=== PATIENT | male | born 1980 | race Caucasian/White ===

== ENCOUNTER 2017-08-12 19:56 | Emergency (ER) | payer MEDICARE, MEDICAID ==
[~2017-08-12] VITALS: Ht 170.2 cm; Wt 63.0 kg
[~2017-08-12 19:56] MED LIST: ALBU6.7H INH; DOXY100T PO; MEDR4PAK3 PO
[2017-08-12 20:00] VITALS: BP 106/63; PULSE 70; RESP 16; TEMP 98.3; O2SAT 95
[2017-08-12] MEDS ORDERED: ALBUAER3 INH (20:17)
--- NOTE | 2017-08-12 20:25 | PD ---
HPI Chief Complaint: Laceration/Skin Injury Time Seen by Provider: 20:08 Travel History International Travel<30 days: No Contact w/Intl Traveler<30days: No Traveled to known affect area: No History of Present Illness HPI 36-year-old male presents emergency department for evaluation of a laceration to the dorsal aspect of the right distal arm and wrist. Says that he was moving metal with a friend when he accidentally cut his wrist. Patient says his pain is mild to moderate, throbbing. Denies radiation of pain. Denies numbness or tingling in the extremity. Says his last tetanus shot was a couple of months ago. He has no other complaints today. PFSH Past Medical History Asthma: Yes Cardiovascular Problems: Yes (ENLARGED HEART) Diabetes: No Diminished Hearing: No Endocrine: No Gastrointestinal Disorders: No Genitourinary: No Headaches: Yes Musculoskeletal: No Psychiatric: Yes (MILD MR) Reproductive: No Respiratory: Yes Migraines: Yes Tetanus Vaccination: < 5 Years Influenza Vaccination: No ?: Not Past Surgical History Surgical History: No Previous Surgery Other Surgery: No Social History Alcohol Use: Yes (occasional) Tobacco Use: No Substance Use: No Allergies-Medications (Allergen,Severity, Reaction): Coded Allergies: cefaclor (Verified Allergy, Severe, HIVES, 08/12/17) Reported Meds & Prescriptions Reported Meds & Active Scripts Active Reported Proair Hfa 8.5 GM Inh (Albuterol Sulfate) 90 Mcg/Act Aer 2 Puff INH Q4-6H PRN 108 mcg/actuation Review of Systems Except as stated in HPI: all other systems reviewed are Neg Physical Exam Narrative GENERAL: Well-nourished, well-developed patient. SKIN: Focused skin assessment warm/dry. Right arm-1 cm proximal to the ulnar styloid process, 4 mm linear laceration, approximately 1-2 mm in depth, bleeding controlled. No gross contaminants HEAD: Normocephalic. EYES: No scleral icterus. No injection or drainage. NECK: Supple, trachea midline. No JVD or lymphadenopathy. CARDIOVASCULAR: Regular rate and rhythm without murmurs, gallops, or rubs. RESPIRATORY: Breath sounds equal bilaterally. No accessory muscle use. MUSCULOSKELETAL: No cyanosis, or edema. Right upper extremity-neurovascularly intact right upper extremity, grade 5/5 strength. BACK: Nontender without obvious deformity. No CVA tenderness. Data Data Last Documented VS Vital Signs Date Time Temp Pulse Resp B/P (MAP) Pulse Ox O2 Delivery O2 Flow Rate FiO2 08/12/17 20:00 98.3 70 16 106/63 (77) 95 Orders Orders Wound Care (08/12/17 20:49) Ed Discharge Order (08/12/17 20:49) MDM Medical Decision Making Medical Screen Exam Complete: Yes Emergency Medical Condition: Yes Differential Diagnosis Right arm laceration, avulsion, abrasion Narrative Course 36-year-old male presents emergency department for evaluation of a laceration to the right arm. Physical exam findings consistent with a very small laceration. Patient and I discussed laceration repair with Steri-Strips and Dermabond versus sutures. We discussed risk versus benefits of both. The laceration was irrigated thoroughly and cleansed with iodine. Site was closed with Steri-Strips and Dermabond. Advised on wound care. Patiently discharge Until They Fall off on Their Own. Advised to Avoid Excessive Exposures to Contaminated Environments. Procedures Procedure Narrative LACERATION LOCATION: right distal arm LENGTH: 4mm NUMBER OF STITCHES/JEREMY: 3 steri strips, Dermabond REPAIR: The area of the laceration was prepped with Betadine. The wound was copiously irrigated and explored without evidence of foreign body, tendon injury or neurovascular injury. The wound was closed using steri strips and dermabond. This was a single layer repair. A sterile dressing was applied. The patient was advised to keep the dressing clean and dry. Patient tolerated the procedure well. Diagnosis Primary Impression: Laceration of arm Qualified Codes: S41.111A - Laceration without foreign body of right upper arm , initial encounter Referrals: [facility] Additional Instructions: Keep area clean and dry. Avoid excessive activity or movement to the area for 7 -10 days. Allow steri strips to fall off on their own Follow up with your primary care physician within 2-3 days. If your symptoms persist or worsen, return to the emergency department. Keep area clean and dry. Change dressings daily. If he developed increased redness, swelling, or pain return to the emergency department. Disposition: 01 DISCHARGE HOME Condition: Stable Jaqui Centeno Aug 12, 2017 20:25
== END 2017-08-12 21:08 | disposition home or self-care (01) ==
LOC: PHEFT 19:56
DX: S51.811A Laceration without foreign body of right forearm, initial encounter (principal); W26.8XXA Contact with other sharp object(s), not elsewhere classified, initial encounter; J45.909 Unspecified asthma, uncomplicated; I51.7 Cardiomegaly
CPT/HCPCS: 12001

== ENCOUNTER 2017-09-29 19:52 | Emergency (ER) | payer MEDICARE, MEDICAID ==
[~2017-09-29] VITALS: Ht 172.7 cm; Wt 62.8 kg
[~2017-09-29 19:52] MED LIST changes: -ALBU6.7H INH; +ALBUAER3 INH; -DOXY100T PO; -MEDR4PAK3 PO
[2017-09-29 19:54] VITALS: BP 148/90; PULSE 85; RESP 18; TEMP 98.9; O2SAT 96
--- NOTE | 2017-09-29 20:18 | PD ---
HPI Chief Complaint: Headache Time Seen by Provider: 20:17 Travel History International Travel<30 days: No Contact w/Intl Traveler<30days: No Traveled to known affect area: No History of Present Illness HPI Patient stated that he is has right sided upper mandible toothache ongoing for the past 3 days, now it is starting to spread to his right side of his face, and he started to develop a headache. The headache he describes as right-sided , throbbing, 6 out of 10, nonradiating. No alleviating or aggravating factors. Patient denies any associated factors such as fever, rash, neck pain/neck stiffness, chest pain, flank pain, back pain, abdominal pain, nausea vomiting diarrhea, sore throat/cough/. Allergic to cefaclor Past medical history significant for nearsightedness, migraine, enlarged heart, asthma, mild MR history PFSH Past Medical History Asthma: Yes Cardiovascular Problems: Yes (ENLARGED HEART) Diabetes: No Diminished Hearing: No Endocrine: No Gastrointestinal Disorders: No Genitourinary: No Headaches: Yes Musculoskeletal: No Psychiatric: Yes (MILD MR) Reproductive: No Respiratory: Yes (ASTHMA) Migraines: Yes ?: Not Past Surgical History Other Surgery: No Social History Alcohol Use: Yes (occasional) Tobacco Use: No Substance Use: No Allergies-Medications (Allergen,Severity, Reaction): Coded Allergies: cefaclor (Verified Allergy, Severe, HIVES, 09/29/17) Reported Meds & Prescriptions Reported Meds & Active Scripts Active Reported Proair Hfa 8.5 GM Inh (Albuterol Sulfate) 90 Mcg/Act Aer 2 Puff INH Q4-6H PRN 108 mcg/actuation Review of Systems General / Constitutional: No: Fever Eyes: No: Visual changes HENT: Positive: Headaches, Dental Difficulties Cardiovascular: No: Chest Pain or Discomfort Respiratory: No: Shortness of Breath Gastrointestinal: No: Abdominal Pain Genitourinary: No: Dysuria Musculoskeletal: No: Pain Skin: No Rash Neurologic: No: Weakness Psychiatric: No: Depression Endocrine: No: Polydipsia Hematologic/Lymphatic: No: Easy Bruising Physical Exam Narrative GENERAL: SKIN: Warm and dry. HEAD: Atraumatic. Normocephalic. EYES: Pupils equal and round. No scleral icterus. No injection or drainage. ENT: No nasal bleeding or discharge. Mucous membranes pink and moist. Right upper maxillary dentition molar #2 and molar #1 localized gingivitis, with extension of cellulitis to his right cheek but not extending up to the infraorbital region there is only indurated without fluctuance, no streaking NECK: Trachea midline. No JVD. CARDIOVASCULAR: Regular rate and rhythm. RESPIRATORY: No accessory muscle use. Clear to auscultation. Breath sounds equal bilaterally. GASTROINTESTINAL: Abdomen soft, non-tender, nondistended. MUSCULOSKELETAL: Extremities without clubbing, cyanosis, or edema. No obvious deformities. NEUROLOGICAL: Awake and alert. No obvious cranial nerve deficits. Motor grossly within normal limits. Five out of 5 muscle strength in the arms and legs. Normal speech. PSYCHIATRIC: Appropriate mood and affect; insight and judgment normal. Data Data Last Documented VS Vital Signs Date Time Temp Pulse Resp B/P (MAP) Pulse Ox O2 Delivery O2 Flow Rate FiO2 09/29/17 19:54 98.9 85 18 148/90 (109) 96 MDM Medical Decision Making Medical Screen Exam Complete: Yes Emergency Medical Condition: Yes Medical Record Reviewed: Yes Differential Diagnosis Dental infection versus facial extension of odontogenic infection versus tension headache Diagnosis Primary Impression: Dental infection with early facial extension Patient Instructions: General Instructions, Toothache (ED) Scripts Tramadol (Ultram) 50 Mg Tab 50 MG PO Q6H Y for PAIN for 3 Days, #12 TAB 0 Refills Prov: Brandon Doherty MD 09/29/17 Penicillin V Potassium (Penicillin V Potassium) 500 Mg Tab 500 MG PO Q8H for Infection for 7 Days, #21 TAB 0 Refills Prov: Brandon Doherty MD 09/29/17 Disposition: 01 DISCHARGE HOME Condition: Stable Brandon Doheryt MD Sep 29, 2017 20:18
[2017-09-29] MEDS ORDERED: TRAM50 PO (20:37)
[2017-09-29] MEDS ORDERED: PENI500T PO (20:37)
[2017-09-29] MEDS ORDERED: ACETAMINOPHEN/HYDROcodone 325 MG/10 MG TAB PO ONE (20:45)
[2017-09-29] MEDS ORDERED: PENICILLIN V POTASSIUM 500 MG TAB PO ONE (20:45)
--- NOTE | 2017-09-29 22:02 | RADRPT ---
EXAM DATE: 09/29/2017 9:47 PM EDT AGE/SEX: 37 years / Male INDICATIONS: Cephalgia. CLINICAL DATA: This is the patient's initial encounter. Patient reports that signs and symptoms have been present for 1 day and indicates a pain score of 8/10. MEDICAL/SURGICAL HISTORY: None. None. RADIATION DOSE: 49.13 CTDI (mGy) COMPARISON: No prior [facility] exams available for comparison. TECHNIQUE: CT of the head without contrast. Using automated exposure control and adjustment of the mA and/or kV according to patient size, radiation dose was kept as low as reasonably achievable to ob tain optimal diagnostic quality images. FINDINGS: Cerebrum: The ventricles are normal for age. No evidence of midline shift, mass lesion, hemorrhage or acute infarction. No extraaxial fluid collections are seen. Posterior Fossa: The cerebellum and brainstem are intact. The 4th ventricle is midline. The cerebe llopontine angle is unremarkable. Extracranial: The visualized portion of the orbits is intact. Skull: The calvaria is intact. No evidence of skull fracture. CONCLUSION: 1. No acute intracranial abnormalities. Electronically signed by: Franky Thomas MD 09/29/2017 10:01 PM EDT
== END 2017-09-29 22:09 | disposition home or self-care (01) ==
LOC: PHEFT 19:52
DX: K04.7 Periapical abscess without sinus (principal); J45.909 Unspecified asthma, uncomplicated; F70 Mild intellectual disabilities
CPT/HCPCS: 70450; 99283